=== PATIENT | male | born 1955 | race Caucasian/White ===

== ENCOUNTER 2016-10-14 14:39 | Emergency (ER) | payer MEDICAID ==
[~2016-10-14] VITALS: Ht 152.4 cm; Wt 45.8 kg
[~2016-10-14 14:39] MED LIST: ALBU0.63 NEB; ALBU8.5H3 INH; CEFD300C2 PO; ENAL2.5T PO; MESA800T2 PO; METO-99 PO; METR500T PO; PRED20TA PO
[2016-10-14 14:40] VITALS: BP 102/65
[2016-10-14 15:43] LABS: HEMOGLOBIN 12.7 g/dL (13.7-18.0)
[2016-10-14 15:56] LABS: BLOOD UREA NITROGEN 22 mg/dL (7-18)
[2016-10-14] MEDS ORDERED: METO1TAB31 PO (16:09)
[2016-10-14] MEDS ORDERED: ONDANSETRON ODT 4 MG ONE (16:50)
[2016-10-14] MEDS ORDERED: ONDANSETRON ODT 4 MG PO ONE (17:00)
[2016-10-14] MEDS ORDERED: NALOXONE 1 MG/ML, 2ML ONE (17:03)
== END 2016-10-14 17:09 | disposition home or self-care (01) ==
LOC: ED 17:03
DX: B34.9 Viral infection, unspecified (principal); I10 Essential (primary) hypertension; J45.909 Unspecified asthma, uncomplicated; Z59.0 Homelessness; Z87.01 Personal history of pneumonia (recurrent)
CPT/HCPCS: 36415; 71020; 80048; 82040; 85025; 99285; Q0162

== ENCOUNTER 2016-11-19 15:52 | Emergency (ER) | payer MEDICAID ==
[~2016-11-19] VITALS: Ht 162.6 cm; Wt 58.4 kg
[~2016-11-19 15:52] MED LIST changes: -CEFD300C2 PO; +CEFD300C37 PO; +METO1TAB31 PO
[2016-11-19 15:53] VITALS: BP 118/71
[2016-11-19] MEDS ORDERED: ALBU0.63 NEB (16:46)
== END 2016-11-19 16:44 | disposition home or self-care (01) ==
LOC: ED 16:37
DX: Z76.0 Encounter for issue of repeat prescription (principal); J45.909 Unspecified asthma, uncomplicated; F17.210 Nicotine dependence, cigarettes, uncomplicated
CPT/HCPCS: 99283

== ENCOUNTER 2016-11-30 19:21 | Emergency (ER) | payer MEDICAID ==
[~2016-11-30] VITALS: Ht 162.6 cm; Wt 48.4 kg
[2016-11-30 19:22] VITALS: BP 128/79
== END 2016-11-30 20:24 | disposition home or self-care (01) ==
LOC: ED 20:18
DX: L02.511 Cutaneous abscess of right hand (principal); I10 Essential (primary) hypertension; J45.909 Unspecified asthma, uncomplicated
CPT/HCPCS: 99283

== ENCOUNTER 2016-12-09 13:01 | Emergency (ER) | payer MEDICAID ==
[2016-12-09] MEDS ORDERED: LORazepam 2 MG/ML, 1ML ONE (13:30)
== END 2016-12-09 13:27 | disposition left against medical advice (07) ==
LOC: ED 13:21
DX: T63.301A Toxic effect of unspecified spider venom, accidental (unintentional), initial encounter (principal); W57.XXXA Bitten or stung by nonvenomous insect and other nonvenomous arthropods, initial encounter; Y93.89 Activity, other specified; Y92.89 Other specified places as the place of occurrence of the external cause; Y99.8 Other external cause status; Z53.21 Procedure and treatment not carried out due to patient leaving prior to being seen by health care provider

== ENCOUNTER 2016-12-26 19:41 | Emergency (ER) | payer MEDICAID ==
[~2016-12-26] VITALS: Ht 162.6 cm; Wt 45.0 kg
[2016-12-26 19:59] VITALS: BP 101/66
== END 2016-12-26 20:48 | disposition home or self-care (01) ==
LOC: ED 20:42
DX: Z76.0 Encounter for issue of repeat prescription (principal); I10 Essential (primary) hypertension; J45.909 Unspecified asthma, uncomplicated; F12.10 Cannabis abuse, uncomplicated
CPT/HCPCS: 99283

== ENCOUNTER 2017-01-26 20:38 | Emergency (ER) | payer MEDICAID ==
[~2017-01-26] VITALS: Ht 162.6 cm; Wt 45.0 kg
[2017-01-26 20:41] VITALS: BP 116/70
== END 2017-01-26 22:09 | disposition home or self-care (01) ==
LOC: ED 22:06
DX: Z76.0 Encounter for issue of repeat prescription (principal); J45.909 Unspecified asthma, uncomplicated; I10 Essential (primary) hypertension
CPT/HCPCS: 99283

== ENCOUNTER 2017-02-27 11:02 | Emergency (ER) | payer MEDICAID ==
[~2017-02-27] VITALS: Ht 162.6 cm; Wt 44.0 kg
[2017-02-27 11:04] VITALS: BP 108/70
[2017-02-27] MEDS ORDERED: IBUPROFEN 200 MG TABLET PO ONE (11:30)
[2017-02-27] MEDS ORDERED: IBUPROFEN 200 MG TABLET ONE (11:43)
[2017-02-27] MEDS ORDERED: MIDAZOLAM 1 MG/ML, 5ML ONE (12:18)
== END 2017-02-27 12:20 | disposition home or self-care (01) ==
LOC: ED 12:14
DX: S50.12XD Contusion of left forearm, subsequent encounter (principal); I10 Essential (primary) hypertension; J44.9 Chronic obstructive pulmonary disease, unspecified; Z76.0 Encounter for issue of repeat prescription
CPT/HCPCS: 99284

== ENCOUNTER 2017-03-10 15:00 | Emergency (ER) | payer MEDICAID ==
[~2017-03-10] VITALS: Ht 162.6 cm; Wt 47.8 kg
[2017-03-10 15:11] VITALS: BP 122/94
== END 2017-03-10 15:34 | disposition home or self-care (01) ==
LOC: ED 15:28
DX: Z76.0 Encounter for issue of repeat prescription (principal); J44.9 Chronic obstructive pulmonary disease, unspecified; F31.9 Bipolar disorder, unspecified; I10 Essential (primary) hypertension
CPT/HCPCS: 99281

== ENCOUNTER 2017-03-17 15:37 | Emergency (ER) | payer MEDICAID ==
[~2017-03-17] VITALS: Ht 162.6 cm; Wt 46.6 kg
[~2017-03-17 15:37] MED LIST changes: -ALBU8.5H3 INH; +ALBU8.5H8 INH
[2017-03-17 15:53] VITALS: BP 122/82
[2017-03-17] MEDS ORDERED: BACITRACIN ZINC OINT 500U/GM, 0.9 GM ONE (16:21)
== END 2017-03-17 17:07 | disposition home or self-care (01) ==
LOC: ED 17:01
DX: T23.122A Burn of first degree of single left finger (nail) except thumb, initial encounter (principal); T31.0 Burns involving less than 10% of body surface; J44.9 Chronic obstructive pulmonary disease, unspecified; F31.9 Bipolar disorder, unspecified; I10 Essential (primary) hypertension; X08.8XXA Exposure to other specified smoke, fire and flames, initial encounter; Y93.89 Activity, other specified; Y92.488 Other paved roadways as the place of occurrence of the external cause; Y99.8 Other external cause status
CPT/HCPCS: 16020

== ENCOUNTER 2017-03-19 09:45 | Emergency (ER) | payer MEDICAID ==
[~2017-03-19] VITALS: Ht 162.6 cm; Wt 45.0 kg
[2017-03-19 09:46] VITALS: BP 116/72
== END 2017-03-19 10:12 | disposition home or self-care (01) ==
LOC: ED 10:03
DX: J44.9 Chronic obstructive pulmonary disease, unspecified (principal); I10 Essential (primary) hypertension
CPT/HCPCS: 99283

== ENCOUNTER 2017-04-15 09:16 | Emergency (ER) | payer MEDICAID ==
[~2017-04-15] VITALS: Ht 162.6 cm; Wt 48.2 kg
[2017-04-15 09:34] VITALS: BP 118/77
== END 2017-04-15 10:10 | disposition home or self-care (01) ==
LOC: ED 09:45
DX: Z76.0 Encounter for issue of repeat prescription (principal); J44.9 Chronic obstructive pulmonary disease, unspecified; I10 Essential (primary) hypertension
CPT/HCPCS: 99281

== ENCOUNTER 2017-04-26 19:52 | Emergency (ER) | payer MEDICAID ==
[~2017-04-26] VITALS: Ht 162.6 cm; Wt 49.4 kg
[2017-04-26 19:56] VITALS: BP 110/69
== END 2017-04-26 20:43 | disposition left against medical advice (07) ==
LOC: ED 20:37
DX: R45.1 Restlessness and agitation (principal); R06.2 Wheezing
CPT/HCPCS: 99281

== ENCOUNTER 2017-04-26 20:45 | Emergency (ER) | payer MEDICAID ==
[~2017-04-26] VITALS: Ht 162.6 cm; Wt 48.4 kg
[2017-04-26 20:46] VITALS: BP 113/72
== END 2017-04-26 21:09 | disposition left against medical advice (07) ==
LOC: ED 20:55
DX: Z53.21 Procedure and treatment not carried out due to patient leaving prior to being seen by health care provider (principal)

== ENCOUNTER 2017-05-11 16:07 | Emergency (ER) | payer MEDICAID ==
[~2017-05-11] VITALS: Ht 162.6 cm; Wt 48.2 kg
[2017-05-11 16:09] VITALS: BP 104/74
[2017-05-11] MEDS ORDERED: SODIUM CHLORIDE 0.9% 1,000ML IVBOLUS ONE (17:00)
[2017-05-11] MEDS ORDERED: SODIUM CHLORIDE FLUSH 10ML SYR IVF ONE (17:00)
[2017-05-11] MEDS ORDERED: FAMOTIDINE 20 MG/2 ML IVP ONE (17:00)
[2017-05-11] MEDS ORDERED: ONDANSETRON 2MG/ML, 2ML IVPush ONE (17:00)
[2017-05-11 17:22] LABS: HEMATOCRIT 44.3 % (39.2-51.8); HEMOGLOBIN 14.8 g/dL (13.7-18.0); WHITE BLOOD COUNT 7.4 x10^3/uL (3.4-10)
[2017-05-11] MEDS ORDERED: ONDANSETRON 2MG/ML, 2ML ONE (17:23)
[2017-05-11] MEDS ORDERED: FAMOTIDINE 20 MG/2 ML ONE (17:23)
[2017-05-11 17:33] LABS: ASPARTATE AMINO TRANSFERASE 37 U/L (15-37); BLOOD UREA NITROGEN 25 mg/dL (7-18)
[2017-05-11] MEDS ORDERED: FENTANYL PF 100 MCG/2ML IV ONE (18:30)
[2017-05-11] MEDS ORDERED: FENTANYL PF 100 MCG/2ML ONE (18:33)
== END 2017-05-11 16:39 | disposition home or self-care (01) ==
LOC: ED 16:33
DX: Z76.0 Encounter for issue of repeat prescription (principal); K62.3 Rectal prolapse; I10 Essential (primary) hypertension; J44.9 Chronic obstructive pulmonary disease, unspecified
CPT/HCPCS: 36415; 80053; 83690; 85025; 96361; 96374; 96375; 99284; J2405; J7030; S0028

== ENCOUNTER 2017-06-10 02:32 | Emergency (ER) | payer MEDICAID ==
[~2017-06-10] VITALS: Ht 162.6 cm; Wt 49.6 kg
[2017-06-10 03:50] VITALS: BP 110/64
== END 2017-06-10 03:53 | disposition home or self-care (01) ==
LOC: ED 03:11
DX: S50.311A Abrasion of right elbow, initial encounter (principal); L02.01 Cutaneous abscess of face; I10 Essential (primary) hypertension; J44.9 Chronic obstructive pulmonary disease, unspecified; X58.XXXA Exposure to other specified factors, initial encounter; Y93.89 Activity, other specified; Y92.89 Other specified places as the place of occurrence of the external cause; Y99.8 Other external cause status
CPT/HCPCS: 10060

== ENCOUNTER 2019-11-01 18:15 | Emergency (ER) | payer MEDICARE, MEDICAID ==
[~2019-11-01] VITALS: Ht 162.6 cm; Wt 50.0 kg
[2019-11-01 18:19] VITALS: BP 122/80
== END 2019-11-01 18:53 | disposition home or self-care (01) ==
LOC: ED 18:52
DX: J44.9 Chronic obstructive pulmonary disease, unspecified (principal); I10 Essential (primary) hypertension; F17.200 Nicotine dependence, unspecified, uncomplicated; Z76.0 Encounter for issue of repeat prescription; Z86.19 Personal history of other infectious and parasitic diseases
CPT/HCPCS: 99281

== ENCOUNTER 2019-12-21 13:38 | Emergency (ER) | payer MEDICARE, MEDICAID ==
[~2019-12-21] VITALS: Ht 162.6 cm; Wt 49.5 kg
[2019-12-21 13:43] VITALS: BP 106/76
[2019-12-21] MEDS ORDERED: FAMOTIDINE 20 MG TABLET PO ONE (15:00)
[2019-12-21] MEDS ORDERED: ONDANSETRON ODT 4 MG PO ONE (15:00)
[2019-12-21] MEDS ORDERED: ONDANSETRON ODT 4 MG ONE (15:34)
[2019-12-21] MEDS ORDERED: FAMOTIDINE 20 MG TABLET ONE (15:34)
== END 2019-12-21 15:42 | disposition home or self-care (01) ==
LOC: ED 15:12
DX: R19.7 Diarrhea, unspecified (principal); R10.84 Generalized abdominal pain; I10 Essential (primary) hypertension; J44.9 Chronic obstructive pulmonary disease, unspecified; F17.200 Nicotine dependence, unspecified, uncomplicated
CPT/HCPCS: 99283

== ENCOUNTER 2020-01-03 07:58 | Emergency (ER) | payer MEDICARE, MEDICAID ==
[~2020-01-03] VITALS: Ht 162.6 cm; Wt 48.2 kg
[2020-01-03 08:00] VITALS: BP 122/80
[2020-01-03] MEDS ORDERED: LORazepam 2 MG/ML, 1ML ONE ×2 (08:51→08:52)
--- NOTE | 2020-01-03 08:56 | NUR ---
PT OK FOR D/C PER ERMD. PT VERBALIZED UNDERSTANDING OF D/C ORDERS. HAS STEADY GAIT UPON D/C, HAS ALL OWN BELONGINGS.
== END 2020-01-03 08:58 | disposition home or self-care (01) ==
LOC: ED 08:22
DX: R19.7 Diarrhea, unspecified (principal); Z76.0 Encounter for issue of repeat prescription; F17.200 Nicotine dependence, unspecified, uncomplicated
CPT/HCPCS: 99283

== ENCOUNTER 2020-01-16 14:14 | Emergency (ER) | payer MEDICARE, MEDICAID ==
[~2020-01-16] VITALS: Ht 162.6 cm; Wt 49.1 kg
[2020-01-16 14:42] VITALS: BP 125/106
== END 2020-01-16 15:52 ==
LOC: ED 15:40
DX: J45.909 Unspecified asthma, uncomplicated (principal); Z76.0 Encounter for issue of repeat prescription
CPT/HCPCS: 99281

== ENCOUNTER 2020-02-19 19:15 | Emergency (ER) | payer MEDICARE, MEDICAID ==
[~2020-02-19] VITALS: Ht 162.6 cm; Wt 46.8 kg
[~2020-02-19 19:15] MED LIST changes: -ENAL2.5T PO; +ENAL2.5T8 PO
[2020-02-19 19:23] VITALS: BP 105/77
== END 2020-02-19 19:45 | disposition home or self-care (01) ==
LOC: ED 19:35
DX: R19.7 Diarrhea, unspecified (principal); Z76.0 Encounter for issue of repeat prescription; J44.9 Chronic obstructive pulmonary disease, unspecified; I10 Essential (primary) hypertension
CPT/HCPCS: 99281

== ENCOUNTER 2020-02-25 14:08 | Emergency (ER) | payer MEDICARE, MEDICAID ==
[~2020-02-25] VITALS: Ht 162.6 cm; Wt 45.4 kg
[~2020-02-25 14:08] MED LIST changes: +ENAL2.5T PO; -ENAL2.5T8 PO
[2020-02-25 14:30] VITALS: BP 132/84
--- NOTE | 2020-02-25 16:27 | NUR ---
DUE DILIGENCE COORDINATOR: PT TO ROOM FROM [facility]
[2020-02-25] MEDS ORDERED: ALBUTEROL/IPRATROPIUM 2.5MG/0.5MG, 3 ML ONE (16:49)
[2020-02-25] MEDS ORDERED: HYDROcodone/APAP 5/325 TABLET ONE (16:58)
[2020-02-25] MEDS ORDERED: ALBUTEROL/IPRATROPIUM 2.5MG/0.5MG, 3 ML NPPB ONE (17:00)
[2020-02-25] MEDS ORDERED: ALBUTEROL/IPRATROPIUM 2.5MG/0.5MG, 3 ML NEB ONE (17:00)
--- NOTE | 2020-02-25 17:10 | NUR ---
PT FEELS BETTER AFTE NEB
== END 2020-02-25 17:12 | disposition home or self-care (01) ==
LOC: ED 17:00
DX: J45.41 Moderate persistent asthma with (acute) exacerbation (principal); I10 Essential (primary) hypertension
CPT/HCPCS: 94640; 99283; J7512

== ENCOUNTER 2020-03-09 22:27 | Emergency (ER) | payer MEDICARE, MEDICAID ==
[~2020-03-09] VITALS: Ht 162.6 cm; Wt 47.2 kg
[2020-03-09 22:49] VITALS: BP 121/82
== END 2020-03-10 00:20 | disposition home or self-care (01) ==
LOC: ED 23:53
DX: R05 Cough (principal); Z76.0 Encounter for issue of repeat prescription; Z72.9 Problem related to lifestyle, unspecified; F15.10 Other stimulant abuse, uncomplicated; F12.10 Cannabis abuse, uncomplicated; R00.0 Tachycardia, unspecified; J44.9 Chronic obstructive pulmonary disease, unspecified; I10 Essential (primary) hypertension; F17.290 Nicotine dependence, other tobacco product, uncomplicated
CPT/HCPCS: 99281

== ENCOUNTER 2020-03-12 21:01 | Emergency (ER) | payer MEDICARE, MEDICAID ==
[~2020-03-12] VITALS: Ht 162.6 cm; Wt 46.5 kg
--- NOTE | 2020-03-12 22:03 | NUR ---
NO ANSWER WHEN CALLED FOR ROOM
--- NOTE | 2020-03-12 23:05 | NUR ---
NO ANSAWER WHEN CALLED FOR ROOM
--- NOTE | 2020-03-13 00:28 | NUR ---
PT AMBULATED BACK TO ROOM WITH A SMOOTH AND STEADY GAIT, NAD, STATES HE CAME IN FOR AN INFECTED RIGHT FOOT AND A SORE ON HIS BUTT. PT CHANGED INTO GOWN, RESTING ON [place], [place], VSS. GIVEN WARM BLANKETS FOR COMFORT. WCTM. WAITING FOR ERP EVAL AND POC.
[2020-03-13] MEDS ORDERED: LIDOCAINE 1%-EPI 1:100K, 20ML SQ ONE (01:00)
[2020-03-13] MEDS ORDERED: CLINDAMYCIN PMX 900MG/50ML 50 ML IVPB ONE (01:00)
[2020-03-13] MEDS ORDERED: CLINDAMYCIN PMX 900MG/50ML 50 ML ONE (01:22)
[2020-03-13] MEDS ORDERED: LIDOCAINE 1%-EPI 1:100K, 20ML ONE (01:22)
[2020-03-13 01:29] LABS: ALANINE AMINOTRANSFERASE 28 U/L (12-78); ALBUMIN 2.9 g/dL (3.4-5.0); ANION GAP 7 mmol/L (5-15); CALCIUM 8.4 mg/dL (8.5-10.1); CHLORIDE 102 mmol/L (98-107); CREATININE 0.94 mg/dL (0.7-1.3)
--- NOTE | 2020-03-13 01:29 | NUR ---
pt medicated per mar, nad, vss, appears comfortable, denies additional needs, wctm. waiting for i&D
[2020-03-13 01:31] LABS: BASOPHILS # (AUTO) 0.05 x10^3/uL (0-0.1); BASOPHILS % (AUTO) 0 % (0-1); EOSINOPHILS # (AUTO) 0.15 x10^3/uL (0-0.4); EOSINOPHILS % (AUTO) 1 % (1-7); LYMPHOCYTES # (AUTO) 1.54 x10^3/uL (1-3.4); LYMPHOCYTES % (AUTO) 11 % (22-44); MD NO; MEAN CORPUSCULAR HEMOGLOBIN 26.8 pg (27.5-34.5); MEAN CORPUSCULAR HGB CONC 32.4 g/dL (33.2-36.2); MEAN CORPUSCULAR VOLUME 82.7 fL (81-97); MEAN PLATELET VOLUME 9.9 fL (7.4-10.4); MONOCYTES # (AUTO) 0.89 x10^3/uL (0.2-0.8); MONOCYTES % (AUTO) 6 % (2-9); NEUTROPHILS # (AUTO) 11.35 x10^3/uL (1.8-6.8); NEUTROPHILS % (AUTO) 81 % (42-75); PLATELET COUNT 242 x10^3/uL (130-400); RED BLOOD COUNT 4.31 x10^6/uL (4.38-5.82); RED CELL DISTRIBUTION WIDTH 15.5 % (9.4-14.8)
[2020-03-13 01:32] LABS: ALKALINE PHOSPHATASE 60 U/L (45-117); BILIRUBIN,TOTAL 0.5 mg/dL (0.2-1.0); TOTAL PROTEIN 7.3 g/dL (6.4-8.2)
[2020-03-13 02:39] VITALS: BP 108/63
--- NOTE | 2020-03-13 02:39 | NUR ---
pt given crackers and cereal per request. nad. no change in condition, appears comfortable. wctm. waiting for meds to finish running.
--- NOTE | 2020-03-13 03:09 | NUR ---
Patient given discharge instructions and they have confirmed that they understand the instructions. Patient ambulatory with steady gait. denies additional needs or questions at this time. NAD, VSS. no belongings found in room after dc.
== END 2020-03-13 03:22 | disposition home or self-care (01) ==
LOC: ED 03-13 01:44
DX: L02.31 Cutaneous abscess of buttock (principal); H92.02 Otalgia, left ear; R00.0 Tachycardia, unspecified; I10 Essential (primary) hypertension; J44.9 Chronic obstructive pulmonary disease, unspecified
CPT/HCPCS: 10060; 36415; 80053; 85025; 93005; 96365; 96366; 99284

== ENCOUNTER 2020-03-15 23:00 | Emergency (ER) | payer MEDICARE, MEDICAID ==
[~2020-03-15] VITALS: Ht 162.6 cm; Wt 45.7 kg
[2020-03-15 23:01] VITALS: BP 117/66
--- NOTE | 2020-03-15 23:44 | NUR ---
PT TO ROOM AT THIS TIME.
--- NOTE | 2020-03-15 23:53 | NUR ---
ERP TO BEDSIDE. NO SIGNS OF DISTRESS. PT UPDATED ON POC.
[2020-03-15] MEDS ORDERED: NEOSPORIN OINT. PKT 1 PACKET ONE (23:55)
== END 2020-03-16 00:13 | disposition home or self-care (01) ==
LOC: ED 23:51
DX: Z48.01 Encounter for change or removal of surgical wound dressing (principal); Z72.9 Problem related to lifestyle, unspecified; F17.200 Nicotine dependence, unspecified, uncomplicated; J44.9 Chronic obstructive pulmonary disease, unspecified; I10 Essential (primary) hypertension
CPT/HCPCS: 99282

== ENCOUNTER 2020-03-20 18:07 | Emergency (ER) | payer MEDICARE, MEDICAID ==
[~2020-03-20] VITALS: Ht 162.6 cm; Wt 47.0 kg
--- NOTE | 2020-03-20 19:08 | NUR ---
pt called to room from lobby
--- NOTE | 2020-03-20 19:12 | NUR ---
PT BACK TO ROOM FROM LOBBY. PLACED ON MONITORING. CALL LIGHT WITHIN REACH. ALL SFAETY MEASURES IN PLACE.
[2020-03-20 19:18] VITALS: BP 120/69
--- NOTE | 2020-03-20 20:01 | NUR ---
D/c'd by other ED RN
== END 2020-03-20 19:52 | disposition home or self-care (01) ==
LOC: ED 19:00
DX: J44.9 Chronic obstructive pulmonary disease, unspecified (principal); Z76.0 Encounter for issue of repeat prescription
CPT/HCPCS: 99281

== ENCOUNTER 2020-04-01 17:20 | Emergency (ER) | payer MEDICARE, MEDICAID ==
[~2020-04-01] VITALS: Ht 167.6 cm; Wt 47.9 kg
[~2020-04-01 17:20] MED LIST changes: -ENAL2.5T PO; +ENAL2.5T8 PO
[2020-04-01] MEDS ORDERED: ALBUTEROL/IPRATROPIUM 2.5MG/0.5MG, 3 ML ONE (19:22)
[2020-04-01] MEDS ORDERED: ALBUTEROL/IPRATROPIUM 2.5MG/0.5MG, 3 ML NPPB ONE (19:30)
[2020-04-01 19:39] VITALS: BP 124/75
--- NOTE | 2020-04-01 19:44 | NUR ---
MEDS ADMIN PER SEP.
[2020-04-01 19:46] LABS: BASOPHILS # (AUTO) 0.06 x10^3/uL (0-0.1); BASOPHILS % (AUTO) 1 % (0-1); EOSINOPHILS # (AUTO) 0.16 x10^3/uL (0-0.4); EOSINOPHILS % (AUTO) 1 % (1-7); LYMPHOCYTES # (AUTO) 1.38 x10^3/uL (1-3.4); LYMPHOCYTES % (AUTO) 12 % (22-44); MD NO; MEAN CORPUSCULAR HEMOGLOBIN 26.8 pg (27.5-34.5); MEAN CORPUSCULAR HGB CONC 32.3 g/dL (33.2-36.2); MEAN CORPUSCULAR VOLUME 82.9 fL (81-97); MEAN PLATELET VOLUME 9.3 fL (7.4-10.4); MONOCYTES # (AUTO) 0.81 x10^3/uL (0.2-0.8); MONOCYTES % (AUTO) 7 % (2-9); NEUTROPHILS # (AUTO) 9.54 x10^3/uL (1.8-6.8); NEUTROPHILS % (AUTO) 80 % (42-75); PLATELET COUNT 232 x10^3/uL (130-400); RED BLOOD COUNT 4.58 x10^6/uL (4.38-5.82); RED CELL DISTRIBUTION WIDTH 16.5 % (9.4-14.8)
[2020-04-01 19:47] LABS: ALBUMIN 3.4 g/dL (3.4-5.0); ANION GAP 4 mmol/L (5-15); CHLORIDE 105 mmol/L (98-107); CREATININE 1.04 mg/dL (0.7-1.3)
[2020-04-01 19:51] LABS: TROPONIN I < 0.015 ng/mL (0.000-0.045)
== END 2020-04-01 20:39 | disposition home or self-care (01) ==
LOC: ED 19:45
DX: J44.1 Chronic obstructive pulmonary disease with (acute) exacerbation (principal); R68.83 Chills (without fever); I21.9 Acute myocardial infarction, unspecified; R00.0 Tachycardia, unspecified; R94.31 Abnormal electrocardiogram [ECG] [EKG]; I11.9 Hypertensive heart disease without heart failure; Z72.0 Tobacco use; Z72.9 Problem related to lifestyle, unspecified; Z59.0 Homelessness
CPT/HCPCS: 36415; 71045; 80048; 82040; 84484; 85025; 93005; 94640; 99285; J7512

== ENCOUNTER 2020-04-20 19:18 | Emergency (ER) | payer MEDICARE, MEDICAID ==
[~2020-04-20] VITALS: Ht 162.6 cm; Wt 46.5 kg
[2020-04-20 19:29] VITALS: BP 128/96
[2020-04-20] MEDS ORDERED: ALBUTEROL SULFATE 2.5 MG/3 ML NPPB ONE (20:30)
[2020-04-20] MEDS ORDERED: ALBUTEROL SULFATE 2.5 MG/3 ML ONE (20:34)
== END 2020-04-20 21:48 | disposition home or self-care (01) ==
LOC: ED 21:09
DX: J44.1 Chronic obstructive pulmonary disease with (acute) exacerbation (principal); Z76.0 Encounter for issue of repeat prescription; I10 Essential (primary) hypertension; F17.200 Nicotine dependence, unspecified, uncomplicated
CPT/HCPCS: 94640; 99283; J7613

== ENCOUNTER 2020-05-07 17:48 | Emergency (ER) | payer MEDICARE, MEDICAID ==
[~2020-05-07] VITALS: Ht 162.6 cm; Wt 46.7 kg
[2020-05-07 17:53] VITALS: BP 101/63
== END 2020-05-07 19:38 | disposition home or self-care (01) ==
LOC: ED 18:00
DX: J44.9 Chronic obstructive pulmonary disease, unspecified (principal); H00.012 Hordeolum externum right lower eyelid; I10 Essential (primary) hypertension; F17.200 Nicotine dependence, unspecified, uncomplicated; Z76.0 Encounter for issue of repeat prescription
CPT/HCPCS: 99281

== ENCOUNTER 2020-06-02 17:57 | Emergency (ER) | payer MEDICARE, MEDICAID ==
--- NOTE | 2020-06-02 18:05 | NUR ---
HAND CIGAR MAKING SUPERVISOR ATTEMPTED TO CALL PATIENT BACK FOR TRIAGE. REGISTRATION REPORTS PATIENT LEFT OUT THE DOOR AFTER BEING TOLD HE WOULD NEED TO BE TRIAGED BEFORE WE WOULD JUST HAND HIM A INHALER REFILL PRESCRIPTION
== END 2020-06-02 18:10 ==
LOC: ED 18:04
DX: R06.02 Shortness of breath (principal); Z53.21 Procedure and treatment not carried out due to patient leaving prior to being seen by health care provider

== ENCOUNTER 2020-06-02 19:03 | Emergency (ER) | payer MEDICARE, MEDICAID ==
[~2020-06-02] VITALS: Ht 162.6 cm; Wt 50.8 kg
[2020-06-02 19:06] VITALS: BP 123/41
--- NOTE | 2020-06-02 19:15 | NUR ---
PT AMBULATORY TO ROOM, STEADY GAIT. REBECCA.
== END 2020-06-02 19:43 | disposition home or self-care (01) ==
LOC: ED 19:30
DX: J44.9 Chronic obstructive pulmonary disease, unspecified (principal); Z76.0 Encounter for issue of repeat prescription; F17.210 Nicotine dependence, cigarettes, uncomplicated; I10 Essential (primary) hypertension; F17.200 Nicotine dependence, unspecified, uncomplicated
CPT/HCPCS: 99281; 99406

== ENCOUNTER 2020-06-11 17:00 | Emergency (ER) | payer MEDICARE, MEDICAID ==
[~2020-06-11] VITALS: Ht 162.6 cm; Wt 50.0 kg
--- NOTE | 2020-06-11 18:04 | NUR ---
WHEEZING X 2 DAYS. HX OF COPD/ASTHMA. DIDN'T KNOW HOW TO LOAD HIS PULMICORT HANDIHALER. INSTRUCTED PATIENT ON USE. PT WISHES NOT TO BE SEEN NOW. PT IS LEAVING. NO VITALS OBTAINED. [employer] REINVESTMENT ACT OFFICER LEVON AWARE. PT IN NO DISTRESS.
== END 2020-06-11 18:06 ==
LOC: ED 17:30
DX: J45.901 Unspecified asthma with (acute) exacerbation (principal); R06.00 Dyspnea, unspecified; F17.210 Nicotine dependence, cigarettes, uncomplicated; Z76.0 Encounter for issue of repeat prescription
CPT/HCPCS: 99281; 99406

== ENCOUNTER 2020-06-12 16:46 | Emergency (ER) | payer MEDICARE, MEDICAID ==
[~2020-06-12] VITALS: Ht 177.8 cm; Wt 49.2 kg
[2020-06-12 17:01] VITALS: BP 136/60
[2020-06-12] MEDS ORDERED: ALBUTEROL/IPRATROPIUM 2.5MG/0.5MG, 3 ML ONE (17:59)
[2020-06-12] MEDS ORDERED: ALBUTEROL/IPRATROPIUM 2.5MG/0.5MG, 3 ML NPPB SCH (18:00)
== END 2020-06-12 19:33 | disposition home or self-care (01) ==
LOC: ED 18:12
DX: J44.1 Chronic obstructive pulmonary disease with (acute) exacerbation (principal); F17.200 Nicotine dependence, unspecified, uncomplicated; I10 Essential (primary) hypertension; Z59.0 Homelessness
CPT/HCPCS: 71045; 93005; 94640; 99283; J7512

== ENCOUNTER 2020-06-30 13:31 | Emergency (ER) | payer MEDICARE, MEDICAID ==
[~2020-06-30] VITALS: Ht 154.9 cm; Wt 51.7 kg
--- NOTE | 2020-06-30 13:44 | NUR ---
CALLED FOR PT. PT NOT IN LOBBY
--- NOTE | 2020-06-30 13:50 | NUR ---
CALLED FOR PT. PT NOT IN LOBBY. SECOND CALL
[2020-06-30 14:03] VITALS: BP 148/75
--- NOTE | 2020-06-30 14:14 | NUR ---
PT STANDING ON CHAIR IN ROOM TRYING TO ADJUST TV. GOT SAFELY OFF CHAIR. STATES "I LOST A COUPLE OF INHALERS". STATES HE NEEDS A NEW ALBUTEROL INHALER AND A NEW COMBIVENT INHALER. PRESENTS EMPTY COMBIVENT INHALER. PT ABLE TO SPEAK IN COMPLETE SENTENCES. STATES LAST USE OF INHALER WAS "2-3 DAYS AGO". DENIES DYSPNEA, SOB CURRENTLY.
[2020-06-30] MEDS ORDERED: IPRA4AER INH (14:21)
== END 2020-06-30 15:01 | disposition home or self-care (01) ==
LOC: ED 14:11
DX: J45.909 Unspecified asthma, uncomplicated (principal); Z76.0 Encounter for issue of repeat prescription; I10 Essential (primary) hypertension
CPT/HCPCS: 99281

== ENCOUNTER 2020-07-07 13:18 | Emergency (ER) | payer MEDICARE, MEDICAID ==
[~2020-07-07] VITALS: Ht 162.6 cm; Wt 50.2 kg
[~2020-07-07 13:18] MED LIST changes: +IPRA4AER INH
[2020-07-07 13:34] VITALS: BP 149/91
== END 2020-07-07 14:30 | disposition home or self-care (01) ==
LOC: ED 14:24
DX: J44.1 Chronic obstructive pulmonary disease with (acute) exacerbation (principal); Z76.0 Encounter for issue of repeat prescription; I10 Essential (primary) hypertension
CPT/HCPCS: 99281

== ENCOUNTER 2020-07-15 02:49 | Emergency (ER) | payer MEDICARE, MEDICAID ==
[~2020-07-15] VITALS: Ht 162.6 cm; Wt 49.0 kg
[2020-07-15 02:51] VITALS: BP 133/74
== END 2020-07-15 04:04 | disposition home or self-care (01) ==
LOC: ED 03:19
DX: L03.211 Cellulitis of face (principal); I10 Essential (primary) hypertension; J44.9 Chronic obstructive pulmonary disease, unspecified; F17.210 Nicotine dependence, cigarettes, uncomplicated
CPT/HCPCS: 99283; 99406

== ENCOUNTER 2020-12-06 20:47 | Emergency (ER) | payer MEDICARE, MEDICAID ==
[~2020-12-06] VITALS: Ht 162.6 cm; Wt 48.0 kg
--- NOTE | 2020-12-06 20:51 | NUR ---
CALLED FOR PT. PT NOT IN LOBBY
--- NOTE | 2020-12-06 21:02 | NUR ---
CALLED FOR PT. PT NOT IN LOBBY
[2020-12-06 21:14] VITALS: BP 130/78
--- NOTE | 2020-12-06 22:45 | NUR ---
NIL X 3
== END 2020-12-06 22:56 | disposition left against medical advice (07) ==
LOC: ED 21:00
DX: M79.671 Pain in right foot (principal); Z53.21 Procedure and treatment not carried out due to patient leaving prior to being seen by health care provider

== ENCOUNTER 2021-04-05 19:28 | Emergency (ER) | payer MEDICARE, MEDICAID ==
[~2021-04-05] VITALS: Ht 162.6 cm; Wt 46.9 kg
[2021-04-05 20:01] VITALS: BP 116/69
--- NOTE | 2021-04-05 22:39 | NUR ---
PT RESTING ON REBECCA GAN. AWAITING LAB RESULTS AND DISPO.
[2021-04-05 22:42] LABS: ALBUMIN 3.1 g/dL (3.4-5.0); ANION GAP 5 mmol/L (5-15); CALCIUM 8.6 mg/dL (8.5-10.1); CHLORIDE 102 mmol/L (98-107); CREATININE 1.19 mg/dL (0.7-1.3)
[2021-04-05 22:45] LABS: BASOPHILS % (AUTO) 0 % (0-1); EOSINOPHILS % (AUTO) 7 % (1-7); LYMPHOCYTES % (AUTO) 20 % (22-44); MEAN CORPUSCULAR HEMOGLOBIN 28.2 pg (27.5-34.5); MEAN CORPUSCULAR HGB CONC 33.9 g/dL (33.2-36.2); MEAN PLATELET VOLUME 8.9 fL (7.4-10.4); MONOCYTES % (AUTO) 10 % (2-9); NEUTROPHILS % (AUTO) 64 % (42-75); PLATELET COUNT 231 x10^3/uL (130-400); RED BLOOD COUNT 4.39 x10^6/uL (4.38-5.82); RED CELL DISTRIBUTION WIDTH 15.4 % (9.4-14.8)
--- NOTE | 2021-04-05 23:26 | NUR ---
pt educated on dc instructions, verbalized understanding. ambulatory to dc desk with steady gait.
== END 2021-04-05 23:36 | disposition home or self-care (01) ==
LOC: ED 23:05
DX: S20.212A Contusion of left front wall of thorax, initial encounter (principal); Z20.822 Contact with and (suspected) exposure to COVID-19; R07.81 Pleurodynia; J18.1 Lobar pneumonia, unspecified organism; Z59.0 Homelessness; J44.9 Chronic obstructive pulmonary disease, unspecified; I10 Essential (primary) hypertension; F17.210 Nicotine dependence, cigarettes, uncomplicated; Y04.8XXA Assault by other bodily force, initial encounter; Y93.89 Activity, other specified; Y92.410 Unspecified street and highway as the place of occurrence of the external cause; Y99.8 Other external cause status
CPT/HCPCS: 36415; 71101; 80048; 82040; 85025; 99284; U0003; U0005